=== PATIENT | female | born 1955 | race Caucasian/White ===

== ENCOUNTER 2017-11-08 03:28 | Observation (INO) | payer OTHER ==
[~2017-11-08] VITALS: Ht 172.7 cm; Wt 121.2 kg
[~2017-11-08 03:28] MED LIST: ALPRAZOLAM ER1 MG PO; BACTRIM,SEPT1 TABLET PO; PROZAC40 MG PO; PYRIDIUM200 MG PO; TOPAMAX100 MG PO; TRAZODONE HCL50 MG PO; ZOLOFT100 MG PO; ZYRTEC10 M2 PO
[2017-11-08 04:02] LABS: HEMATOCRIT 43.5 % (36.0-46.0); HEMOGLOBIN 14.5 G/DL (11.9-15.5); MCH 29.6 PG (29.0-34.0); MCHC 33.3 G/DL (30.0-36.0); MCV 88.8 FL (83-99); PLATELET COUNT 342 K/uL (156-360); RBC DIS.WIDTH-CV 13.7 % (11.8-14.6); RBC DIS.WIDTH-SD 44.1 % (39-53); WHITE BLOOD COUNT 10.2 K/uL (4.1-10.2)
[2017-11-08 04:06] LABS: APPEARANCE CLOUDY ((CLEAR)); BILIRUBIN SMALL; BLOOD NEGATIVE; COLOR AMBER ((YELLOW)); GLUCOSE (STRIP) NEGATIVE; KETONES NEGATIVE; LEUKOCYTES NEGATIVE; NITRITE NEGATIVE; PROTEIN (STRIP) 30
[2017-11-08 04:09] LABS: BACTERIA 2+ /HPF; EPITHELIAL CELLS 2+ /HPF; HYALINE CASTS 0-5 /LPF; MUCUS 1+ /LPF; RED BLOOD CELLS 0-5 /HPF (0-5); UCUL ADDED? YES
[2017-11-08 04:13] LABS: CHLORIDE 103 mEq/L (99-109); SODIUM 141 mEq/L (136-147)
[2017-11-08 04:15] LABS: GLUCOSE 137 mg/dL (70-99)
[2017-11-08 04:16] LABS: TOTAL PROTEIN 7.4 g/dL (6.4-8.3)
[2017-11-08 04:17] LABS: TOTAL BILIRUBIN 0.6 mg/dL (0.0-1.0)
[2017-11-08 04:19] LABS: ALKALINE PHOSPHATASE 107 IU/L (3-129); CREATININE 0.9 mg/dL (0.6-1.3); GFR ESTIMATE (CALCULATED) > 59 mL/min/
[2017-11-08 04:20] LABS: UREA NITROGEN (BUN) 17 mg/dL (9-23)
[2017-11-08 04:21] LABS: AST (GOT) 255 IU/L (2-34)
[2017-11-08 04:22] LABS: ALT (GPT) 244 IU/L (3-49)
[2017-11-08] MEDS ORDERED: ZOFRAN4 MG PO (05:55)
[2017-11-08 10:04] LABS: LIPASE 99 U/L (1.0-51.0)
[2017-11-08 11:47] LABS: INTER. NORMALIZED RATIO 1.1
[2017-11-08 11:50] LABS: PTT 29.9 SEC (25-37)
[2017-11-08] MEDS ORDERED: ESCITALOPRAM OX20 MG PO (12:49)
[2017-11-08] MEDS ORDERED: ALEVE220 MG PO (12:51)
[2017-11-08 14:04] VITALS: BP 126/74
[2017-11-08 20:00] VITALS: BP 137/80
[2017-11-09] VITALS: BP 140/77
[2017-11-09 03:53] VITALS: BP 128/71
[2017-11-09 07:15] VITALS: BP 128/74
[2017-11-09] MEDS ORDERED: NORCO 5/3251 TABLET PO (12:57)
[2017-11-09 14:50] VITALS: BP 140/85
[2017-11-09 16:25] VITALS: BP 133/74
[2017-11-09 20:00] VITALS: BP 118/69
[2017-11-10 00:08] VITALS: BP 136/77
[2017-11-10 09:30] VITALS: BP 115/64
== END 2017-11-10 14:04 | disposition home or self-care (01) ==
LOC: EME 03:28 → EDOF 11:35 → 4SOUTH 11:35 → EDOF 11:35 → ENRESERV 11:36 → 4SOUTH 13:55 → ENPENDDIS 11-10 → 4SOUTH 11-10 14:04
PROVIDERS: Surgery
PROC: 0FT44ZZ Resection of Gallbladder, Percutaneous Endoscopic Approach (ICD-10-PCS; principal; 2017-11-08)
DX: K80.10 Calculus of gallbladder with chronic cholecystitis without obstruction (principal); R51 Headache; F60.9 Personality disorder, unspecified; F32.9 Major depressive disorder, single episode, unspecified; F41.9 Anxiety disorder, unspecified; Z88.1 Allergy status to other antibiotic agents; Z87.891 Personal history of nicotine dependence
CPT/HCPCS: 71046; 74177; 76705; 80048; 80053; 81003; 83605; 83690; 85025; 85027; 85610; 85730; 87086; 88304; 99281; 99285; G0378; J0131; J0690; J1100; J1170; J1885; J2405; J2543; J2710; J3010; J7030; J7050; J7120; J7643; S0020